=== PATIENT | male | born 1990 | race African-American/Black ===

== ENCOUNTER 2024-03-15 00:32 | Emergency (ER) | payer SELFPAY ==
--- NOTE | ~2024-03-15 | XR_ITS ---
EXAMINATION: XR wrist LT min 3V DATE: 03/15/2024 01:09 INDICATION: Left wrist pain post fall TECHNIQUE: Posteroanterior, oblique and lateral views of the left wrist were obtained. COMPARISON: none FINDINGS: Partially 2 mm dorsal distraction of a small likely avulsion fracture at the dorsum of the triquetrum with surrounding soft tissue swelling. No other fractures identified. Alignment is otherwise normal with normal joint spaces throughout. IMPRESSION: 1. Mild distraction of a small avulsion fracture at the dorsal aspect of the triquetrum. Reviewed, dictated and finalized at location A. IMPRESSION: 1. Mild distraction of a small avulsion fracture at the dorsal aspect of the tr iquetrum.
[2024-03-15 00:40] VITALS: BP 133/93; PULSE 92; RESP 17; TEMP 36.6; O2SAT 98
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
[2024-03-15] MEDS: HYDROcodone/acetaminophen (*CRX) 5-325 MG TABLET 1 TAB PO (02:14)
== END 2024-03-15 02:34 | disposition home or self-care (01) ==
PROVIDERS: Emergency Provider Physician Assistant
DX: S62.112A Displaced fracture of triquetrum [cuneiform] bone, left wrist, initial encounter for closed fracture (principal); F17.200 Nicotine dependence, unspecified, uncomplicated; V28.49XA Other motorcycle driver injured in noncollision transport accident in traffic accident, initial encounter
CPT/HCPCS: 29125; 73110; 99284; A4565; A9270

== ENCOUNTER 2024-05-03 19:39 | Emergency (ER) | payer SELFPAY ==
[2024-05-03 19:49] VITALS: BP 139/85; PULSE 84; RESP 14; TEMP 36.7; O2SAT 96
--- NOTE | 2024-05-03 20:16 | ED.MALEGU ---
HPI - Male Genitourinary General Chief complaint: Urogenital-Male Stated complaint: saw crust in underwear' Time Seen by Provider: 05/03/24 19:50 History of Present Illness HPI Narrative: Patient presents here after starting a new relationship with a new partner 2 weeks ago, earlier he noticed some discharge in his underwear. Denies any pain. Concerned about STDs Related Data Allergies Allergy/AdvReac Type Severity Reaction Status Date / Time No Known Allergies Allergy Verified 05/03/24 19:53 Review of Systems Review of Systems: All systems reviewed & are unremarkable except as noted in HPI and below PMFSH Past Medical History Medical History (Updated 05/03/24 @ 20:06 by Gemma Ramirez MD) No active medical problems Social History Social History (Updated 03/15/24 @ 01:30 by Mckenzie Aguirre PA-C) Smoking status: Current every day smoker Exam Narrative: EXAMINATION OF ORGAN SYSTEMS/BODY AREAS: Constitutional: Vital signs per nursing GENERAL:[No acute distress, non-toxic appearing.] HEAD: Normal with no signs of head trauma. EYES: EOMI, conjunctiva normal ENT: Hearing grossly intact LUNGS: Nonlabored breathing. HEART: [Regular rate and rhythm] ABD: soft nontender to palpation EXT: Normal range of motion : small amount of penile discharge without tenderness or lesions, no testicular swelling or tenderness SKIN: [No rashes or lesions.] NEURO: [Alert and oriented x 3. No gross focal sensory or strength deficits.] PSYCH: Normal affect Course Vital Signs Vital signs: Vital Signs Temperature 98.1 F 05/03/24 19:49 Pulse Rate 84 05/03/24 19:49 Respiratory Rate 14 05/03/24 19:49 Blood Pressure 139/85 05/03/24 19:49 Pulse Oximetry 96 05/03/24 19:49 Oxygen Delivery Room Air 05/03/24 19:49 Temperature 98.1 F 05/03/24 19:49 Pulse Rate 84 05/03/24 19:49 Respiratory Rate 14 05/03/24 19:49 Blood Pressure 139/85 05/03/24 19:49 Pulse Oximetry 96 05/03/24 19:49 Oxygen Delivery Room Air 05/03/24 19:49 MDM - Male Genitourinary MDM Narrative Medical decision making narrative: 33-year-old patient presents to the emergency department for STD testing. Denies any systemic symptoms. Exam unremarkable. GC/CT were sent for testing. Patient was treated empirically with ceftriaxone 500 mg IM, Flagyl 500 mg, and doxycycline 100mg, they are counseled on safe sex practices and should follow up regarding results, and can return to ER for any worsening symptoms. patient agreeable to this plan. Is talking to his partner on the phone to discuss the plan. Discharge Plan Discharge Clinical Impression: Concern about STD in male without diagnosis Patient Disposition: Home, Self-Care Condition: Stable Instructions: Antibiotic Form, Sexually Transmitted Diseases (ED) Additional Instructions: Please take the antibiotics as prescribed; do not have unprotected sexual intercourse until both you and your partner have finished your treatments. Do not drink alcohol while you are on the antibiotics. Follow up with a PCP and come back for any further issues. Prescriptions: New doxycycline hyclate 100 mg capsule 100 mg PO Q12H 7 Days Qty: 14 0RF metronidazole 500 mg tablet 500 mg PO Q12H Qty: 14 0RF No Action hydrocodone-acetaminophen 5-325 mg tablet 1 tablet PO Q8H PRN (Reason: pain) Qty: 20 0RF Follow-up/Referrals: PHYSICIAN,OXIDIZED FINISH PLATER [Primary Care Provider] - Herrera Vaughn MD [Physician] - 2 Days
[2024-05-03] MEDS: cefTRIAXone 1 GM VIAL 0.5 GM IM (20:24)
[2024-05-03] MEDS: metroNIDAZOLE 500 MG TABLET PO (20:25)
[2024-05-03] MEDS: DOXYCYCLINE HYCLATE 100 MG TABLET PO (20:25)
[2024-05-03 20:41] LABS: Add Urine Microscopic? YES; Appearance Urine Turbid (Clear); Bacteria Urine None Seen /hpf; Bilirubin Urine Negative (Negative); Blood Urine 1+ (Negative); Color Urine Dark Yellow (Yellow); Glucose Urine UA Negative (Negative); Ketones Urine Trace mg/dL (Negative); Leukocyte Esterase Ur 3+ LEU/UL (Negative); Nitrate Urine Negative (Negative); Non Pathogenic Casts 0-2; Protein Urine 1+ mg/dL (Negative); Specific Grav Ur 1.028 (1.001-1.035); Squamous Epithelial Cell Urine None Seen /hpf (Few); WBC Urine >100 /hpf (0-3); pH Urine 5.5 (5.0-9.0)
[2024-05-03 21:54] LABS: Trichomonas Vag PCR NOT DETECTED (NOT DETECTE)
[2024-05-03 22:21] LABS: Chlamydia trachomatis DETECTED (NOT DETECTE); Neisseria gonorrhoeae PCR DETECTED (NOT DETECTE)
== END 2024-05-03 20:41 | disposition home or self-care (01) ==
LOC: ANHED 20:13
PROVIDERS: Emergency Provider Emergency Medicine
DX: Z11.3 Encounter for screening for infections with a predominantly sexual mode of transmission (principal); F17.200 Nicotine dependence, unspecified, uncomplicated
CPT/HCPCS: 81001; 87086; 87491; 87591; 87661; 96372; 99283; A9270; J0696